=== PATIENT | female | born 1980 | race Caucasian/White ===

== ENCOUNTER 2017-07-25 16:55 | Emergency (ER) | payer OTHER ==
[~2017-07-25] VITALS: Ht 172.7 cm; Wt 90.7 kg
[2017-07-25 17:52] LABS: HEMATOCRIT 41.2 % (36.0-46.0); MCH 30.1 PG (29.0-34.0); MCV 88.6 FL (83-99); PLATELET COUNT 295 K/uL (156-360); RBC DIS.WIDTH-CV 12.5 % (11.8-14.6); RBC DIS.WIDTH-SD 40.5 % (39-53); RED BLOOD COUNT 4.65 M/uL (3.80-5.20); WHITE BLOOD COUNT 11.8 K/uL (4.1-10.2)
[2017-07-25 18:04] LABS: ALBUMIN 3.8 g/dL (3.2-4.8); CHLORIDE 103 mEq/L (99-109); POTASSIUM 4.1 mEq/L (3.7-5.4); SODIUM 137 mEq/L (136-147)
[2017-07-25 18:06] LABS: GLUCOSE 105 mg/dL (70-99); TOTAL PROTEIN 7.1 g/dL (6.4-8.3)
[2017-07-25 18:08] LABS: TOTAL BILIRUBIN 0.4 mg/dL (0.0-1.0)
[2017-07-25 18:10] LABS: ALKALINE PHOSPHATASE 70 IU/L (3-129); CREATININE 0.8 mg/dL (0.6-1.3); GFR ESTIMATE (CALCULATED) > 59 mL/min/
[2017-07-25 18:11] LABS: AST (GOT) 20 IU/L (2-34); UREA NITROGEN (BUN) 13 mg/dL (9-23)
[2017-07-25 18:13] LABS: ALT (GPT) 18 IU/L (3-49)
[2017-07-25 18:22] LABS: QUANTITATIVE HCG < 4.0 MIU/ML
[2017-07-25 19:08] LABS: LIPASE 14 U/L (1.0-51.0)
[2017-07-25 19:12] LABS: APPEARANCE CLEAR ((CLEAR)); BILIRUBIN NEGATIVE; BLOOD NEGATIVE; COLOR YELLOW ((YELLOW)); GLUCOSE (STRIP) NEGATIVE; KETONES NEGATIVE; LEUKOCYTES NEGATIVE; NITRITE NEGATIVE; PROTEIN (STRIP) NEGATIVE; SPECIFIC GRAVITY 1.015 (1.000-1.030); UCUL ADDED? NO; UROBILINOGEN 0.2 MG/DL (0.2-1.0)
[2017-07-25] MEDS ORDERED: PERCOCET 5/31 TABLET PO (20:27)
[2017-07-25] MEDS ORDERED: CIPRO500 MG PO (20:27)
[2017-07-25 20:43] VITALS: BP 151/82
== END 2017-07-25 20:50 | disposition home or self-care (01) ==
LOC: EME 16:55
DX: K80.20 Calculus of gallbladder without cholecystitis without obstruction (principal); Z88.0 Allergy status to penicillin; Z88.8 Allergy status to other drugs, medicaments and biological substances
CPT/HCPCS: 76705; 80053; 81003; 83690; 84702; 85027; 99281; 99285

== ENCOUNTER 2017-08-12 07:26 | Day surgery (SDC) | payer OTHER ==
[~2017-08-12] VITALS: Ht 172.7 cm; Wt 88.9 kg
[~2017-08-12 07:26] MED LIST: CIPRO500 MG PO; LEXAPRO20 MG PO; PERCOCET 5/31 TABLET PO
[2017-08-12 08:01] VITALS: BP 129/83
[2017-08-12] MEDS ORDERED: NORCO 5/3251 TABLET PO (10:51)
[2017-08-12 12:04] VITALS: BP 158/84
[2017-08-12 12:32] VITALS: BP 150/88
== END 2017-08-12 12:42 | disposition home or self-care (01) ==
LOC: SDC 07:26
PROC: 0FT44ZZ Resection of Gallbladder, Percutaneous Endoscopic Approach (ICD-10-PCS; principal; 2017-08-12)
DX: K80.11 Calculus of gallbladder with chronic cholecystitis with obstruction (principal); E78.5 Hyperlipidemia, unspecified; Z86.19 Personal history of other infectious and parasitic diseases; Z82.49 Family history of ischemic heart disease and other diseases of the circulatory system; Z80.1 Family history of malignant neoplasm of trachea, bronchus and lung; Z82.0 Family history of epilepsy and other diseases of the nervous system; Z80.0 Family history of malignant neoplasm of digestive organs; Z87.891 Personal history of nicotine dependence; Z88.0 Allergy status to penicillin; Z88.2 Allergy status to sulfonamides
CPT/HCPCS: 88304; J0330; J1100; J1170; J1200; J1580; J2250; J2405; J2710; J3010; J7050; S0030